=== PATIENT | female | born 1975 | race Caucasian/White ===

== ENCOUNTER 2016-12-28 11:55 | Emergency (ER) | payer BC, OTHER ==
[2016-12-28 12:01] VITALS: BP 141/89
[2016-12-28 13:57] LABS: Hematocrit 40 % (35-47); Hemoglobin 13.7 g/dl (12.0-16.0); Mean Corpuscular HGB Conc 34 g/dl (31-36); Mean Corpuscular Hemoglobin 31 pg (27-31); Mean Corpuscular Volume 91 fL (80-97); Mean Platelet Volume 7 um3 (7.4-10.4); Red Blood Count 4.39 10^6/ul (4.0-5.4); Red Cell Distribution Width 13 % (10.5-15); White Blood Count 5.9 10^3/ul (3.5-10.8)
[2016-12-28 14:16] LABS: Albumin 4.4 g/dL (3.2-5.2); BUN/Creatinine Ratio 14.8 (8-20); Calcium 10.1 mg/dL (8.6-10.3); EGFR African American 91.1 (>60); EGFR Non-African American 70.8 (>60); Globulin 3.2 g/dL (2-4); Magnesium 2.2 mg/dL (1.9-2.7); Potassium 4.2 mmol/L (3.5-5.0); Total Bilirubin 0.5 mg/dL (0.2-1.0); Total Protein 7.6 g/dL (6.4-8.9)
--- NOTE | 2016-12-29 22:33 | ED ---
Kishan Elder Adam, scribed for Fer Hudson MD on 12/28/16 at 1353 . Neurological HPI - HPI Summary HPI Summary: Pt is a 41 year old female presenting with concerns about possible increased seizure activity. She states that she has been on Keppra 200 mg 2x daily for a year and has had no seizure activity until approximately 1 month ago. During the past month she has noticed that she has been having difficulty concentrating and reading which is very abnormal for her. She has also been noticing apparent bite injuries in her mouth, sore muscles in the morning after waking, and auras similar to the ones she used to have before seizures. Pt suspects that she may be having absence seizures and/or nocturnal seizures. She states that she called her neurologist and he wants her to double her Keppra dosage starting tonight. Rocio Lubin, the pt's PCP, sent her to the ED to have her chemistry levels checked. Pt also c/o increased fatigue in the past month. 1.5 weeks ago she had a severe HENSON that lasted for several days and she was started on methylprednisolone. - History of Current Complaint Chief Complaint: EDSeizure Stated Complaint: NIGHT SEIZURES/MEMORY ISSUE Time Seen by Provider: 12/28/16 13:47 Hx Obtained From: Patient Hx Last Menstrual Period: Doesn't menstruate due to medication Onset/Duration: Gradual Onset, Started weeks ago, Still Present Timing: Intermittent Episodes Lasting: - Seconds - minutes Onset Severity: Moderate Current Severity: Moderate Seizure Severity: Moderate Pain Intensity: 0 Pain Scale Used: 0-10 Numeric Seizure Character: Partial (Specify) - Absence, nocturnal Aggravating: Unknown Alleviating: Spontanious Resolution Associated Signs and Symptoms: Positive: Headache - Allergy/Home Medications Allergies/Adverse Reactions: Allergies Allergy/AdvReac Type Severity Reaction Status Date / Time No Known Allergies Allergy Verified 02/19/14 17:38 PMH/Surg Hx/FS Hx/Imm Hx Endocrine/Hematology History: Denies: Hx Diabetes, Hx Thyroid Disease Cardiovascular History: Denies: Hx Hypertension Respiratory History: Denies: Hx Asthma, Hx Chronic Obstructive Pulmonary Disease (COPD) GI History: Denies: Hx Ulcer Musculoskeletal History: Denies: Hx Osteoporosis - Surgical History Surgery Procedure, Year, and Place: LEFT Knee ACL Repair 1999 Infectious Disease History: No Infectious Disease History: Denies: Hx Hepatitis, Hx Human Immunodeficiency Virus (HIV), Traveled Outside the [place] in Last 30 Days - Family History Known Family History: Positive: Seizure Disorder - Mother - Social History Occupation: Employed Full-time Lives: Alone Alcohol Use: Weekly Hx Substance Use: Yes Substance Use Type: Reports: Marijuana Substance Use Comment - Amount & Last Used: occasional Amount Used/How Often: social Review of Systems Positive: Fatigue, Skin Diaphoresis. Negative: Fever, Chills Negative: Erythema Negative: Sore Throat Negative: Chest Pain Negative: Shortness Of Breath, Cough Negative: Abdominal Pain, Vomiting, Nausea Negative: dysuria, hematuria Negative: Myalgia, Edema Negative: Rash Neurological: Other - Seizures All Other Systems Reviewed And Are Negative: Yes Physical Exam - Summary Physical Exam Summary: Constitutional: Well-developed, Well-nourished, Alert. (-) Distressed Skin: Warm, Dry HENT: Normocephalic; Atraumatic Eyes: Conjunctiva normal Neck: Musculoskeletal ROM normal neck. (-) JVD, (-) Stridor, (-) Tracheal deviation Cardio: Rhythm regular, rate normal, Heart sounds normal; Intact distal pulses; The pedal pulses are 2+ and symmetric. Radial pulses are 2+ and symmetric. (-) Murmur Pulmonary/Chest wall: Effort normal. (-) Respiratory distress, (-) Wheezes, (-) Rales Abd: Soft, (-) Tenderness, (-) Distension, (-) Guarding, (-) Rebound Musculoskeletal: (-) Edema Lymph: (-) Cervical adenopathy Neuro: Alert, Oriented x3 Psych: Mood and affect Normal Triage Information Reviewed: Yes Vital Signs On Initial Exam: Initial Vitals Temp Pulse Resp BP Pulse Ox 97.6 F 98 16 141/89 100 12/28/16 11:57 12/28/16 11:57 12/28/16 11:57 12/28/16 11:57 12/28/16 11:57 Vital Signs Reviewed: Yes Diagnostics - Vital Signs Vital Signs Temp Pulse Resp BP Pulse Ox 12/28/16 11:57 97.6 F 98 16 141/89 100 - Laboratory Result Diagrams: 12/28/16 13:40 12/28/16 13:40 Lab Statement: Any lab studies that have been ordered have been reviewed, and results considered in the medical decision making process. Course/Dx - Diagnoses Provider Diagnoses: Seizure disorder Discharge - Discharge Plan Condition: Stable Disposition: HOME Patient Education Materials: Epilepsy (ED) Referrals: Aruna Wilkes MD [Medical Doctor] - Additional Instructions: Follow up with Dr. Wilkes (Neurology) in 2-3 days. The documentation as recorded by the Kishan gonsales Adam accurately reflects the service I personally performed and the decisions made by , Fer Hudson MD.
== END 2016-12-28 15:54 | disposition home or self-care (01) ==
LOC: ED 11:55
DX: G40.909 Epilepsy, unspecified, not intractable, without status epilepticus (principal); R51 Headache; R53.83 Other fatigue
CPT/HCPCS: 36415; 80053; 80177; 83605; 83735; 85025; 85610; 99283